=== PATIENT | female | born 1975 | race Caucasian/White ===

== ENCOUNTER 2018-03-31 11:48 | Outpatient (CLI) | payer BC ==
[2018-03-31 12:16] VITALS: BP 112/66
== END 2018-03-31 14:28 | disposition home or self-care (01) ==
LOC: LDRP-OP 11:48 → 2WEST 11:49
DX: O26.893 Other specified pregnancy related conditions, third trimester (principal); R10.2 Pelvic and perineal pain; M54.9 Dorsalgia, unspecified; O09.523 Supervision of elderly multigravida, third trimester; Z3A.36 36 weeks gestation of pregnancy
CPT/HCPCS: 59025; G0378